=== PATIENT | male | born 1980 | race Caucasian/White ===

== ENCOUNTER 2017-02-12 16:19 | Emergency (ER) | payer BC ==
[2017-02-12] MEDS ORDERED: Aspirin EC Low Dose* 81 MG TAB.EC PO ONE (16:46)
--- NOTE | 2017-02-12 16:48 | ED ---
HPI Cardiac - HPI Summary HPI Summary: 36 yr old male with chest pain. HPI: The patient complains of chest pain that radiates into his jaw and down his arm. Pain is minimal 1/10 at this point. pressure like. He denies having SOB, diaphoresis, dizziness. He has a history of HTN. Family history of premature CAD. Pain comes and goes. - History of Current Complaint Chief Complaint: UCChestPain Stated Complaint: CHEST PAIN Time Seen by Provider: 02/12/17 16:33 - Allergy/Home Medications Allergies/Adverse Reactions: Allergies Allergy/AdvReac Type Severity Reaction Status Date / Time No Known Allergies Allergy Verified 02/12/17 16:26 Home Medications: Home Medications Lisinopril TAB* [Prinivil TAB*] 10 mg PO DAILY 02/12/17 [History Confirmed 02/12] Pantoprazole Sodium [Protonix] 20 mg PO DAILY 02/12/17 [History Confirmed ] PMH/Surg Hx/FS Hx/Imm Hx Cardiovascular History: Reports: Hx Hypertension - Surgical History Surgery Procedure, Year, and Place: Lazy eye repair bilat Infectious Disease History: No Infectious Disease History: Denies: Traveled Outside the [place] in Last 30 Days - Family History Known Family History: Positive: Cardiac Disease - Social History Occupation: Employed Full-time Alcohol Use: Rare Substance Use Type: Reports: None Smoking Status (MU): Never Smoked Tobacco Review of Systems Constitutional: Negative Eyes: Negative ENT: Negative Positive: Chest Pain Negative: Shortness Of Breath, Cough Negative: Nausea Neurological: Negative All Other Systems Reviewed And Are Negative: Yes Physical Exam Triage Information Reviewed: Yes Vital Signs On Initial Exam: Initial Vitals Temp Pulse Resp BP Pulse Ox 98.3 F 95 14 121/86 95 02/12/17 16:21 02/12/17 16:21 02/12/17 16:21 02/12/17 16:21 02/12/17 16:21 Vital Signs Reviewed: Yes Appearance: Positive: Well-Appearing, No Pain Distress, Well-Nourished Skin: Positive: Warm Head/Face: Positive: Normal Head/Face Inspection Eyes: Positive: Normal, EOMI, SEKOU Neck: Positive: Supple Respiratory/Lung Sounds: Positive: Clear to Auscultation, Breath Sounds Present Cardiovascular: Positive: Normal, RRR. Negative: Murmur Abdomen Description: Positive: Nontender Musculoskeletal: Positive: Normal, Strength/ROM Intact Neurological: Positive: Normal, Sensory/Motor Intact, Alert, Oriented to Person Place, Time, CN Intact II-III Psychiatric: Positive: Normal - Clay Coma Scale Best Eye Response: 4 - Spontaneous Best Motor Response: 6 - Obeys Commands Best Verbal Response: 5 - Oriented Diagnostics - Vital Signs Vital Signs Temp Pulse Resp BP Pulse Ox 02/12/17 16:21 98.3 F 95 14 121/86 95 - Laboratory Lab Statement: Any lab studies that have been ordered have been reviewed, and results considered in the medical decision making process. - EKG 02/12/2017 Cardiac Rate: NL EKG Rhythm: Sinus Rhythm ST Segment: Normal Ectopy: None Disposition - Course Course Of Treatment: 36 yr old male with family history and HTN with chest pain. Discussed with Jonathan the provider at [facility] and they accept the transfer. - Diagnoses Provider Diagnoses: Chest pain Discharge - Discharge Plan Condition: Good Disposition: TRANS HIGHER LVL OF CARE FAC
[2017-02-12 17:12] VITALS: BP 160/100
[2017-02-12] MEDS ORDERED: Aspirin Low Dose CHEW TAB* 81 MG ONE (17:23)
== END 2017-02-12 17:12 | disposition short-term general hospital (02) ==
LOC: UCCORT 16:19
DX: R07.89 Other chest pain (principal); I10 Essential (primary) hypertension
CPT/HCPCS: 93005; 99203; A9270-GY; G0463